=== PATIENT | male | born 1960 | race African-American/Black ===

== ENCOUNTER 2019-10-22 15:42 | Emergency (ER) | payer OTHER ==
[~2019-10-22] VITALS: Ht 175.3 cm; Wt 84.9 kg
[2019-10-22 16:07] VITALS: BP 131/75
--- NOTE | 2019-10-22 17:11 | RAD ---
INDICATION: Reason: pain and knot behind left knee / Spl. Instructions: / History: COMPARISON: None. TECHNIQUE: Grayscale, color and doppler ultrasound images were obtained of the left lower extremity venous vasculature. LEFT: No thrombus identified in the common femoral vein, femoral vein, popliteal vein or visualized calf veins. IMPRESSION: * No thrombus identified in deep venous system of the left lower extremity. * 43 x 10 mm hypoechoic structure within the popliteal fossae with some internal echoes. It could be from causes such as Cook's cyst with debris or a small soft tissue hematoma. Cannot assess for infectious involvement on ultrasound. Electronically signed by: Scott Valenzuela MD (10/22/2019 5:08 PM) [id number]
--- NOTE | 2019-10-22 18:12 | PHYS DOC ---
Past Medical History Past Medical History: No Pertinent History Past Surgical History: No Surgical History Smoking Status: Former Smoker Alcohol Use: Sober General Adult EDM: Chief Complaint: LOWER EXT PAIN HPI: HPI: Patient is a 59 year old incarcerated male, accompanied by group home staff, who presents to the emergency department with complaints of a knot behind his left knee that he noticed about 2 weeks ago. Patient reports concerns for blood clot. He denies any history of blood clots. Patient denies any swelling of his extremities, injury to his left leg or knee, shortness of breath, wheezing, fever, cough, chest pain, palpitations, numbness, tingling, or weakness. He currently rates his pain a 4 out of 10 on the pain scale, he states that the pain radiates to his calf, he denies any alleviating factors, the pain is worse with palpation and movement. Review of Systems: Review of Systems: Constitutional: Denies fever or chills. [] HENT: Denies nasal congestion or sore throat. [] Respiratory: Denies cough or shortness of breath. [] Cardiovascular: Denies chest pain or edema. [] Musculoskeletal: See HPI Integument: Denies rash. [] Neurologic: Denies headache, focal weakness or sensory changes. [] Psychiatric: Denies depression or anxiety. [] Heart Score: Risk Factors: Risk Factors: DM, Current or recent (<one month) smoker, HTN, HLP, family history of CAD, obesity. Risk Scores: Score 0 - 3: 2.5% MACE over next 6 weeks - Discharge Home Score 4 - 6: 20.3% MACE over next 6 weeks - Admit for Clinical Observation Score 7 - 10: 72.7% MACE over next 6 weeks - Early Invasive Strategies Allergies: Allergies: Allergies Coded Allergies Type Severity Reaction Last Updated Verified No Known Drug Allergies 10/22/19 No Physical Exam: PE: Constitutional: Well developed, well nourished, no acute distress, non-toxic appearance. [] HENT: Normocephalic, atraumatic, bilateral external ears normal, nose normal. [] Eyes: PERRLA, EOMI, conjunctiva normal, no discharge. [] Neck: Normal range of motion, no stridor. [] Cardiovascular:Heart rate regular rhythm Lungs & Thorax: Respirations even and unlabored, no retractions, no respiratory distress Skin: Warm, dry, no erythema, no rash. [] Extremities: Right knee: Tenderness to palpation of posterior knee, no palpable deformity, no cyanosis, ROM intact, no edema. [] Neurologic: Alert and oriented X 3, no focal deficits noted. [] Psychologic: Affect normal, judgement normal, mood normal. [] Current Patient Data: Vital Signs: Vital Signs Date Time Temp Pulse Resp B/P (MAP) Pulse Ox O2 Delivery O2 Flow Rate FiO2 10/22/19 16:07 97.7 88 18 131/75 (93) 100 Room Air 97.7 EKG: EKG: [] Radiology/Procedures: Radiology/Procedures: PROCEDURE: VENOUS LOWER EXTREMITY LEFT INDICATION: Reason: pain and knot behind left knee / Spl. Instructions: / History: COMPARISON: None. TECHNIQUE: Grayscale, color and doppler ultrasound images were obtained of the left lower extremity venous vasculature. LEFT: No thrombus identified in the common femoral vein, femoral vein, popliteal vein or visualized calf veins. IMPRESSION: * No thrombus identified in deep venous system of the left lower extremity. * 43 x 10 mm hypoechoic structure within the popliteal fossae with some internal echoes. It could be from causes such as Cook's cyst with debris or a small soft tissue hematoma. Cannot assess for infectious involvement on ultrasound. Electronically signed by: Scott Valenzuela MD (10/22/2019 5:08 PM) [id number] [] Course & Med Decision Making: Course & Med Decision Making Pertinent Labs and Imaging studies reviewed. (See chart for details) [] Dragon Disclaimer: Dragon Disclaimer: This electronic medical record was generated, in whole or in part, using a voice recognition dictation system. Departure Departure Impression: Primary Impression: Cook's cyst of knee Qualified Codes: M71.22 - Synovial cyst of popliteal space [Cook], left knee Disposition: 01 HOME, SELF-CARE Condition: STABLE Referrals: NO PCP (PCP) JUAN C MARS MD Patient Instructions: Cook's Cyst Additional Instructions: Tylenol or ibuprofen as needed for pain. Recommend application of ice, e levation, and rest of affected extremity. Wear the shad wrap that was placed as needed for comfort. Follow up with Dr. Mars for further evaluation and treatment. Return to the ER if your symptoms worsen. Justicifation of Admission Dx: Justifications for Admission: Justification of Admission Dx: N/A Splinting Splinting : Location: Left knee Pre-Made Type: velcro Pre-Proc Neuro Vasc Exam: normal Post-Proc Neuro Vasc Exam: normal, unchanged from pre-exam JANETT BETHEA APRN Oct 22, 2019 18:12
== END 2019-10-22 18:46 | disposition home or self-care (01) ==
LOC: ER 15:42 → EEVIPCON 15:42 → ER 18:46
DX: M71.22 Synovial cyst of popliteal space [Baker], left knee (principal); Z87.891 Personal history of nicotine dependence
CPT/HCPCS: 29515; 93971; 99284